=== PATIENT | female | born 1960 | race American Indian/Alaskan Native ===

== ENCOUNTER 2019-02-25 17:55 | Inpatient (IN) | payer BC ==
[2019-02-25 18:23] VITALS: BMI 25.2
[2019-02-25] MEDS ORDERED: Ondansetron PF 4 MG/2 ML Vial IVP PRN (19:18)
[2019-02-25] MEDS ORDERED: Diazepam 5 MG TAB PO PRN (19:34)
--- NOTE | 2019-02-25 20:08 | HP ---
PRIMARY CARE PROVIDER: Out of town in [place]. CHIEF COMPLAINT: Fall. HISTORY OF PRESENT ILLNESS: This is a 58-year-old female with history of hypertension, alcohol abuse, reporting 2 bottles of wine per night, hypothyroidism, who was at a local inpatient alcohol rehab, who reports a fall this morning. The patient states that she had weakness in her leg starting in September. Today, she was sitting, reached over for something, and reports falling. She denies passing out, states that her legs simply are not strong enough to carry her. In general, she has been walking slowly to accommodate the weakness, holding onto orona. She denies any chest pain or difficulty breathing. Denies any pain anywhere right now. She also denies any nausea, vomiting, or abdominal pain. The patient presented to [facility] today, found to have an acute kidney injury. She received IV fluids and hospitalist here called for admission. By report at the inpatient rehab, the patient has been receiving Librium with a taper, as well as Valium at night. She reports her last dose of Librium was 2 days ago, her last drink of alcohol was 4 nights ago, and she entered rehab 3 days ago. She reports drinking very little fluid over the past few days. ALLERGIES: NO KNOWN DRUG ALLERGIES. CURRENT MEDICATIONS: Reconciled with the patient: 1. Losartan 50 mg daily, states her last dose of this was 3 days ago when she entered rehab because her blood pressures were low that day. She estimates around 100 systolic. 2. Synthroid 50 mcg daily. Medications reported at the rehab facility are (no documentation is available): 1. Librium unknown dose and frequency. 2. Folic acid. 3. Thiamine. 4. Multivitamin. 5. Valium. PAST MEDICAL HISTORY: 1. Hypothyroidism. 2. Hypertension. PAST SURGICAL HISTORY: Gastric bypass. FAMILY HISTORY: Negative for inherited conditions. SOCIAL HISTORY: Her home is in [place]. Her is her surrogate decision maker. She is a full code. She reports 2 bottles of wine per night starting last summer. REVIEW OF SYSTEMS: Negative for fevers, chills, nausea, vomiting, abdominal pain, chest pain, difficulty breathing, headache, or change in vision. All remaining review of systems are reviewed and negative. PHYSICAL EXAMINATION: VITAL SIGNS: Blood pressure 100/63, temperature 97.8, pulse 75, respirations 16 , saturations 99% on room air. GENERAL: Awake, alert, responsive, answers questions appropriately. Does appear weak in general, but not in apparent distress. HEENT: Her pupils are equal and round, reactive to light. No scleral icterus. Oral mucosa is pink and moist. NECK: Supple, nontender. LYMPHATICS: No palpable cervical or supraclavicular lymphadenopathy. LUNGS: Clear to auscultation bilateral. No audible wheezing, rhonchi, or rales. HEART: Normal S1 and S2. Regular rate and rhythm. No significant murmur. ABDOMEN: Soft, present bowel sounds. Nontender. Nondistended. EXTREMITIES: No edema, clubbing, or cyanosis. SKIN: No visible rashes. NEUROLOGIC: No focal deficits. Moving arms and legs equally. PSYCHIATRIC: Affect is blunted, unknown baseline. L/l/gd thought process. LABORATORY DATA: Reviewed from the [facility]. 1. CBC 4.1, 10.9, 32.4, 171 with an MCV of 99. 2. CT report of the brain without contrast, no acute intracranial abnormality. 3. Renal panel is 143, 4.1, 108, 24, 2.2, 123. 4. EKG is personally reviewed. It is sinus rhythm, normal axis, normal intervals, some T-wave inversions and flattening throughout. IMPRESSION: 1. Acute kidney injury in the context of poor p.o. intake, low blood pressures, and an ARB. 2. Alcohol abuse. Currently, at an inpatient rehab being treated for alcohol withdrawal. 3. History of hypertension, currently with blood pressures that are low normal. 4. Hypothyroidism, unknown control with levothyroxine replacement. 5. Anemia, mild. PLAN: 1. Admission to the hospital. 2. IV fluid hydration, check urinalysis, renal ultrasound, and Nephrology consultation. 3. Monitoring her blood pressures. 4. Monitoring for alcohol withdrawal and medications per the ASE protocol (do not think she needs a banana bag as she can take PO, IM thiamine as she can take PO, valium 10 mg now as she has been on long-acting librium. Can do the other medications per protocol - discussed with Pharmacist). 5. Check TSH. Continue Synthroid and adjust if needed. 6. Vitamins are included with the ASE protocol. We will order those. 7. Renal diet. 8. We will order Valium at night per the patient's request - 5 mg prn. 9. Monitor on telemetry for now. 10. PT and OT consult given the weakness. 11. DVT prophylaxis with pneumatic compression devices. 12. GI prophylaxis not indicated. The patient will be written for a diet. 13. Code status is full. Surrogate decision maker is the patient's . Reviewed the plan of care with the patient. No questions or further needs at the end of evaluation. The patient is at high risk given age comorbidities and current presentation. Anticipate this hospitalization will be 3-4 days, based on optimizing her renal function. Job ID: [id number] MTDD
[2019-02-25] MEDS: Sodium Chloride 0.9% 1,000 ML IV SCH (21:55)
[2019-02-25] MEDS: Diazepam 5 MG TAB PO PRN (23:31)
[2019-02-26] MEDS ORDERED: Diazepam 5 MG TAB PO PRN (04:00)
[2019-02-26 04:47] LABS: Anion Gap 13 mmol/L (10-20); BUN (Urea Nitrogen) 21 mg/dL (9.8-20.1); Calc. Creatinine Clearance 28 mL/min (70-130); Calcium 7.9 mg/dL (7.8-10.44); Carbon Dioxide 21 mmol/L (22-29); Chloride 114 mmol/L (98-107); Estimated GFR-MDRD 26; Glucose 86 mg/dL (70-105); Potassium 3.5 mmol/L (3.5-5.1); Sodium 144 mmol/L (136-145)
[2019-02-26 04:56] LABS: #Eosinphils 0.1 thou/uL (0.0-0.7); #Lymphocytes 1.3 thou/uL (1.20-3.40); #Monocytes 0.3 thou/uL (0.11-0.59); #Neutrophils 1.9 thou/uL (1.40-6.50); %Basophils 1.2 % (0.0-1.0); %Lymphocytes 35.3 % (21.0-51.0); %Neutrophils 50.6 % (42.0-75.0); Hemoglobin 8.9 g/dL (12.0-16.0); MDiff Complete? YES; Macrocytosis SLIGHT = 6-15 cells (100X) (0-5/hpf); Mean Corpuscular HGB CONC 33.1 g/dL (32.0-36.0); Mean Corpuscular Hemoglobin 35.3 pg (27.0-31.0); Mean Platelet Volume 9.4 fL (7.4-10.4); Platelet Count 133 thou/uL (130-400); Platelet Morphology Comment Appears Adequate; RBC Distribution Width 11.4 % (11.5-14.5); Red Blood Cell (RBC) Count 2.51 mill/uL (4.20-5.40); White Blood Cell (WBC) Count 3.7 thou/uL (4.8-10.8)
[2019-02-26] MEDS: Levothyroxine Sodium 50 MCG TAB PO SCH (05:59)
[2019-02-26] MEDS: Sodium Chloride 0.9% 1,000 ML IV SCH ×3 (05:59→20:33)
--- NOTE | 2019-02-26 08:41 | ULT ---
RENAL ULTRASOUND: DATE: 02/26/2019. COMPARISON: None. HISTORY: Acute renal insufficiency. TECHNIQUE: Multiplanar, lerma scale sonographic imaging of the kidneys and urinary bladder obtained. FINDINGS: Partially visualized hepatic parenchyma is echogenic suggesting possible steatosis. The right kidney measures 8.7 x 4.3 x 4.1 cm with a cortical thickness of approximately 1.2 cm. No right-sided renal mass, hydronephrosis, or stone seen. The left kidney measures 9.5 x 5.3 x 4.4 cm and demonstrates a cortical thickness of 1.1 cm. No left -sided renal mass, hydronephrosis, or stone noted. The urinary bladder is grossly unremarkable. IMPRESSION: No hydronephrosis. POS: BERNARDO
[2019-02-26] MEDS ORDERED: Sodium Chloride 0.9% 500 ML IV SCH (08:45)
[2019-02-26] MEDS: Folic Acid 1 MG TAB PO SCH (09:44)
[2019-02-26] MEDS: Multivitamin W/ Minerals 1 TAB PO SCH (09:45)
[2019-02-26] MEDS: Thiamine 100 MG TAB PO SCH (09:45)
[2019-02-26] MEDS: Magnesium Oxide 400 MG TAB PO SCH (09:45)
[2019-02-26 10:16] LABS: Bacteria/HPF 4+ HPF (None Seen); Bilirubin Negative (Negative); Blood, Urine Trace (Negative); Clarity Turbid (Clear); Glucose, Urine (Dipstick) Normal (Negative); Leukocyte 500 Leu/uL (Negative); Nitrite Negative (Negative); Protein, Urine (Dipstick) 30 mg/dL (Neg-Trace); WBC/HPF Greater than 50 HPF (0-3)
[2019-02-26 10:26] LABS: Urine Culture Reflex No No
--- NOTE | 2019-02-26 15:09 | PDOC.EVN ---
Event Note - Event Note Event Note: Patient admitted early this morning. She came here from [place] to go into an alcohol rehab. She says she has been off alcohol for several days. Last time she was sober was 2014. Reports generalized weakness and a fall at the rehab. Still feels weak and tired. She appears a little lethargic. Heart regular. Lungs clear. No edema. BP has been a little low. Has no symptoms. UOP fair. Suspect her renal disease is not acute given the BUN:creat. US normal. Recheck in am. PT/OT. Check cortisol level, CMP (with albumin), Free T4, ESR in am. Looks like she has macrocytic anemia and generalized bone marrow suppression from alcohol. No signs of withdrawal at this time. ASE protocol in place.
[2019-02-26] MEDS: Sodium Chloride 0.9% 250 ML IV SCH ×3 (15:28→17:44)
[2019-02-26] MEDS: cefTRIAXone\\ROCEPHIN 1 GM in Sodium Chloride 0.9% 100 ML IVPB SCH (16:31)
[2019-02-26] MEDS: Diazepam 5 MG TAB PO PRN (22:02)
--- NOTE | 2019-02-26 23:16 | CON ---
DATE OF CONSULTATION: CONSULTING PHYSICIAN: Honorio Bowles MD REQUESTING PHYSICIAN: Jil Han MD REASON FOR CONSULTATION: Acute on chronic kidney disease versus chronic kidney disease. IMPRESSION: 1. Acute on chronic kidney disease versus chronic kidney disease, baseline, stage 3. 2. Fall. 3. Hypertension. PLAN: 1. We will recommend rehydration of this patient and improvement in the hemodynamics of this patient as the patient's current blood pressure runs in the 80s. 2. Renally dose all medications for lower GFR. 3. Further management to be dependent on the clinical course. HISTORY OF PRESENT ILLNESS: History is that of a 58-year-old out of town patient from [place], who is here rehabilitating, who took a fall and was brought into the hospital, noted with a creatinine of 1.9. The patient could not give me much of any history of previous history of kidney disease. As a result of these findings, decision has been taken to involve Renal in the management of this case. Of note, the patient's blood pressure seems to be running in the 80s. ALLERGIES: NO KNOWN DRUG ALLERGIES. MEDICATIONS: Reviewed as documented on [employer]. FAMILY HISTORY: No family history of kidney disease. SOCIAL HISTORY: The patient is from [place]. Denies illicit drug use or another rehabilitation. REVIEW OF SYSTEMS: As documented in the body of history. All other systems were reviewed and found not to be significantly related to present illness. PHYSICAL EXAMINATION: GENERAL: The patient was found to be looking very lethargic man, in no respiratory or physical distress. VITAL SIGNS: Noted with the following vital signs; afebrile, temperature 97.9, pulse 80, respiratory rate of 15, O2 saturation 100% with blood pressure 88/55. HEENT: Unremarkable. CARDIOVASCULAR: First and second heart sounds were heard. RESPIRATORY SYSTEM: Clear to auscultation. DIGESTIVE SYSTEM: Revealed a benign abdomen. Positive bowel sounds. EXTREMITIES: No peripheral edema. SKIN: No new gross rash. LYMPHATICS: No peripheral lymphadenopathy. SUMMARY: A 58-year-old female patient, who presented here status post fall. Noted with the decrease in kidney function. Thank you for this consultation. We will follow with you. Job ID: [id number]
[2019-02-27 02:04] LABS: #Eosinphils 0.2 thou/uL (0.0-0.7); #Lymphocytes 1.5 thou/uL (1.20-3.40); #Monocytes 0.3 thou/uL (0.11-0.59); #Neutrophils 1.6 thou/uL (1.40-6.50); %Basophils 1.2 % (0.0-1.0); %Eosinophils 4.2 % (0.0-10.0); %Lymphocytes 42.5 % (21.0-51.0); %Monocytes 7.1 % (0.0-10.0); Hemoglobin 8.2 g/dL (12.0-16.0); Mean Corpuscular HGB CONC 34.1 g/dL (32.0-36.0); Mean Platelet Volume 8.6 fL (7.4-10.4); Platelet Count 134 thou/uL (130-400); RBC Distribution Width 11.6 % (11.5-14.5); Red Blood Cell (RBC) Count 2.27 mill/uL (4.20-5.40); White Blood Cell (WBC) Count 3.6 thou/uL (4.8-10.8)
[2019-02-27 02:25] LABS: ALT (SGPT) 25 U/L (8-55); AST (SGOT) 91 U/L (5-34); Albumin 2.3 g/dL (3.5-5.0); Alkaline Phosphatase 59 U/L (40-110); Anion Gap 11 mmol/L (10-20); BUN (Urea Nitrogen) 16 mg/dL (9.8-20.1); Bilirubin, Total 0.4 mg/dL (0.2-1.2); Calc. Creatinine Clearance 40 mL/min (70-130); Calcium 7.2 mg/dL (7.8-10.44); Carbon Dioxide 17 mmol/L (22-29); Chloride 120 mmol/L (98-107); Estimated GFR-MDRD 39; Globulin 2.3 g/dL (2.4-3.5); Glucose 93 mg/dL (70-105); Potassium 3.2 mmol/L (3.5-5.1); Protein, Total 4.6 g/dL (6.0-8.3); Sodium 145 mmol/L (136-145); Uric Acid 9.9 mg/dL (2.6-6.0)
[2019-02-27] MEDS ORDERED: Potassium Chloride 20 MEQ TAB PO SCH (02:45)
[2019-02-27] MEDS: Sodium Chloride 0.9% 1,000 ML IV SCH ×4 (03:15→22:10)
[2019-02-27] MEDS: Levothyroxine Sodium 50 MCG TAB PO SCH (05:22)
[2019-02-27] MEDS: Thiamine 100 MG TAB PO SCH (09:17)
[2019-02-27] MEDS: Multivitamin W/ Minerals 1 TAB PO SCH (09:17)
[2019-02-27] MEDS: Folic Acid 1 MG TAB PO SCH (09:17)
[2019-02-27] MEDS: Hydrocortisone 10 mg Tablet PO SCH ×4 (09:18→22:10)
[2019-02-27] MEDS: Magnesium Oxide 400 MG TAB PO SCH (09:18)
--- NOTE | 2019-02-27 15:41 | PDOC.HOSPP ---
- Subjective Subjective: Feels about the same today. Still feels weak and tired. - Objective Vital Signs & Weight: Vital Signs (12 hours) Temp Pulse Pulse Pulse Resp BP BP 02/27/19 11:25 97.5 F L 76 16 02/27/19 10:50 76 77 98/56 L 89/56 L 02/27/19 07:31 98.8 F 82 16 BP Pulse Ox Pulse Ox Pulse Ox 02/27/19 11:25 85/80 L 94 L 02/27/19 10:50 98 97 02/27/19 07:31 101/63 97 Weight Weight 132 lb 4 oz I&O: 02/26/19 02/27/19 02/28/19 06:59 06:59 06:59 Intake Total 1600 3940 Output Total 250 Balance 1600 3690 Result Diagrams: 02/27/19 01:47 02/27/19 01:47 Hospitalist ROS - Medication Medications: Active Medications Generic Name Dose Route Start Last Admin Trade Name Freq PRN Reason Stop Dose Admin Diazepam 5 mg 02/25/19 19:31 02/26/19 22:02 Valium PO 5 mg HS PRN Administration Insomnia Folic Acid 1 mg 02/26/19 09:00 02/27/19 09:17 Folvite PO 1 mg DAILY IRENA Administration Hydrocortisone 50 mg 02/27/19 09:00 02/27/19 13:42 Cortef PO 50 mg QID IRENA Administration Sodium Chloride 1,000 mls @ 125 mls/hr 02/25/19 19:30 02/27/19 13:46 Normal Saline 0.9% IV 1,000 mls .Q8H IRENA Administration Ceftriaxone Sodium 1 gm/ 100 mls @ 200 mls/hr 02/26/19 15:00 02/26/19 16:31 Sodium Chloride IVPB 100 mls Q24HR IRENA Administration Iron/Minerals/Multivitamins 1 tab 02/26/19 09:00 02/27/19 09:17 Theragran M PO 1 tab DAILY IRENA Administration Levothyroxine Sodium 50 mcg 02/26/19 06:00 02/27/19 05:22 Synthroid PO 50 mcg 0600 IRENA Administration Magnesium Oxide 400 mg 02/26/19 09:00 02/27/19 09:18 Magnesium Oxide PO 400 mg DAILY IRENA Administration Thiamine HCl 100 mg 02/26/19 09:00 02/27/19 09:17 Thiamine PO 100 mg DAILY IRENA Administration - Exam General Appearance: NAD, awake alert Heart: RRR, no murmur, no gallops, no rubs, normal peripheral pulses Respiratory: CTAB, no wheezes, no rales, no ronchi, normal chest expansion, no tachypnea, normal percussion Gastrointestinal: soft, non-tender, non-distended, normal bowel sounds, no palpable masses, no hepatomegaly, no splenomegaly, no bruit Extremities: no cyanosis, no clubbing, no edema Skin: normal turgor Musculoskeletal: normal tone Psychiatric: normal affect, normal behavior Hosp A/P (1) JANKI (acute kidney injury) Code(s): N17.9 - ACUTE KIDNEY FAILURE, UNSPECIFIED Status: Acute (2) Dehydration Code(s): E86.0 - DEHYDRATION Status: Acute (3) Alcoholism Code(s): F10.20 - ALCOHOL DEPENDENCE, UNCOMPLICATED Status: Acute (4) Hypotension Status: Acute (5) Adrenal insufficiency Code(s): E27.40 - UNSPECIFIED ADRENOCORTICAL INSUFFICIENCY Status: Acute (6) Pancytopenia Code(s): D61.818 - OTHER PANCYTOPENIA Status: Acute (7) Macrocytic anemia Code(s): D53.9 - NUTRITIONAL ANEMIA, UNSPECIFIED Status: Acute - Plan Generalized weakness with relatively low BP and poor UOP. She did not have pre-renal indices to suggest severe dehydration, but she has received a large amount of fluid resuscitation without much reciprocal UOP. Continue with IVF. Renal function is slightly better today. Cortisol was low. Adding HCT po today. So far, no significant change in BP. Continue PT Transfer to medical floor. Check B12 and Folate levels in am. Possible her symptoms could be related to severe B 12 deficiency.
[2019-02-27] MEDS: cefTRIAXone\\ROCEPHIN 1 GM in Sodium Chloride 0.9% 100 ML IVPB SCH (16:39)
--- NOTE | 2019-02-27 18:15 | PRG ---
DATE OF SERVICE: 02/27/2019 SUBJECTIVE: The patient noted with the following vital signs. OBJECTIVE: VITAL SIGNS: Afebrile, temperature 97.4, respiratory rate of 19, pulse of 76, O2 sat of 98%, and blood pressure 111/76. HEENT: Unremarkable. Moist oral mucosa. No conjunctival injection or icterus. NECK: Supple. CARDIOVASCULAR SYSTEM: First and second heart sounds were heard. RESPIRATORY: Clear to auscultation. DIGESTIVE SYSTEM: Revealed a benign abdomen with positive bowel sounds. EXTREMITIES: No peripheral edema. SKIN: No new gross rash. LYMPHATICS: No peripheral lymphadenopathy. LABORATORY INVESTIGATION: Showed a hemoglobin of 8.2. Chemistry showed a potassium of 3.2, creatinine down to 1.37. IMPRESSION: 1. Acute kidney injury, seems to be improved status post rehydration. 2. Hypokalemia. 3. Metabolic acidosis. 4. Alcohol abuse. PLAN: 1. Continue current renal supportive measures to support hemodynamics. 2. Replete the potassium. 3. Further management to be dependent on the clinical course. Job ID: [id number]
[2019-02-28] MEDS: Sodium Chloride 0.9% 1,000 ML IV SCH ×2 (07:21→18:18)
[2019-02-28] MEDS: Levothyroxine Sodium 50 MCG TAB PO SCH (07:22)
[2019-02-28 07:24] LABS: Anion Gap 8 mmol/L (10-20); BUN (Urea Nitrogen) 12 mg/dL (9.8-20.1); Calc. Creatinine Clearance 47 mL/min (70-130); Calcium 7.1 mg/dL (7.8-10.44); Carbon Dioxide 18 mmol/L (22-29); Chloride 121 mmol/L (98-107); Estimated GFR-MDRD 45; Glucose 183 mg/dL (70-105); Potassium 3.9 mmol/L (3.5-5.1); Sodium 143 mmol/L (136-145)
[2019-02-28] MEDS: Hydrocortisone 10 mg Tablet PO SCH ×4 (08:02→20:12)
[2019-02-28] MEDS: Thiamine 100 MG TAB PO SCH (08:02)
[2019-02-28] MEDS: Folic Acid 1 MG TAB PO SCH (08:02)
[2019-02-28] MEDS: Magnesium Oxide 400 MG TAB PO SCH (08:02)
[2019-02-28] MEDS: Multivitamin W/ Minerals 1 TAB PO SCH (08:02)
[2019-02-28] MEDS: Aspirin/APAP/Caffeine Tab (Excedrin Migraine) PO PRN (10:59)
--- NOTE | 2019-02-28 12:34 | PRG ---
DATE OF SERVICE: 02/28/2019 SUBJECTIVE: The patient noted with the following vital signs. OBJECTIVE: VITAL SIGNS: Afebrile, temperature 97.8, pulse 84, respiratory rate of 18, O2 saturations are 99%, and blood pressure 114/79. HEENT: Unremarkable. CARDIOVASCULAR SYSTEM: First and second heart sounds were heard. RESPIRATORY SYSTEM: Clear to auscultation. DIGESTIVE SYSTEM: Revealed a benign abdomen. EXTREMITIES: No peripheral edema. SKIN: No new gross rash. LYMPHATICS: No peripheral lymphadenopathy. LABORATORY INVESTIGATION: Significant for creatinine down to 1.21, bicarb of 18. IMPRESSION: 1. Acute on chronic kidney disease, improving with IV fluids, status post rehydration. 2. Metabolic acidosis. PLAN: 1. Continue current renal supportive measures. 2. Further management will be dependent on the clinical course. Job ID: [id number]
[2019-02-28] MEDS: cefTRIAXone\\ROCEPHIN 1 GM in Sodium Chloride 0.9% 100 ML IVPB SCH (14:18)
[2019-02-28] MEDS: Acetaminophen 325 MG TAB PO PRN (16:01)
[2019-02-28] MEDS: Diazepam 5 MG TAB PO PRN (20:14)
--- NOTE | 2019-02-28 22:01 | PDOC.HOSPP ---
- Subjective Subjective: Feels a little better. Has had a headache today, but improving. - Objective Vital Signs & Weight: Vital Signs (12 hours) Temp Pulse Pulse Pulse Resp BP BP 02/28/19 19:15 02/28/19 19:10 97.3 F L 87 18 02/28/19 15:40 97.4 F L 94 20 02/28/19 15:15 94 91 110/71 104/71 02/28/19 11:39 97.8 F 84 18 BP Pulse Ox 02/28/19 19:15 98 02/28/19 19:10 110/76 98 02/28/19 15:40 110/71 96 02/28/19 15:15 02/28/19 11:39 114/79 99 Weight Weight 132 lb 6.4 oz I&O: 02/27/19 02/28/19 03/01/19 06:59 06:59 06:59 Intake Total 3940 2095 1705 Output Total 250 450 500 Balance 3690 1645 1205 Result Diagrams: 02/27/19 01:47 02/28/19 06:39 Hospitalist ROS - Medication Medications: Active Medications Generic Name Dose Route Start Last Admin Trade Name Freq PRN Reason Stop Dose Admin Acetaminophen 650 mg 02/25/19 19:18 02/28/19 16:01 Tylenol PO 650 mg Q8H PRN Administration Headache/Fever/Mild Pain (1-3) Acetaminophen/Aspirin/Caffeine 1 tab 02/28/19 10:36 02/28/19 10:59 Excedrin Migraine PO 1 tab Q6H PRN Administration Headache Diazepam 5 mg 02/25/19 19:31 02/28/19 20:14 Valium PO 5 mg HS PRN Administration Insomnia Folic Acid 1 mg 02/26/19 09:00 02/28/19 08:02 Folvite PO 1 mg DAILY IRENA Administration Hydrocortisone 50 mg 02/27/19 09:00 02/28/19 20:12 Cortef PO 50 mg QID IRENA Administration Sodium Chloride 1,000 mls @ 125 mls/hr 02/25/19 19:30 02/28/19 18:18 Normal Saline 0.9% IV 1,000 mls .Q8H IRENA Administration Ceftriaxone Sodium 1 gm/ 100 mls @ 200 mls/hr 02/26/19 15:00 02/28/19 14:18 Sodium Chloride IVPB 100 mls Q24HR IRENA Administration Iron/Minerals/Multivitamins 1 tab 02/26/19 09:00 02/28/19 08:02 Theragran M PO 1 tab DAILY IRENA Administration Levothyroxine Sodium 50 mcg 02/26/19 06:00 02/28/19 07:22 Synthroid PO 50 mcg 0600 IRENA Administration Magnesium Oxide 400 mg 02/26/19 09:00 02/28/19 08:02 Magnesium Oxide PO 400 mg DAILY IRENA Administration Thiamine HCl 100 mg 02/26/19 09:00 02/28/19 08:02 Thiamine PO 100 mg DAILY IRENA Administration - Exam General Appearance: NAD, awake alert Heart: RRR, no murmur, no gallops, no rubs, normal peripheral pulses Respiratory: CTAB, no wheezes, no rales, no ronchi, normal chest expansion, no tachypnea, normal percussion Gastrointestinal: soft, non-tender, non-distended, normal bowel sounds, no palpable masses, no hepatomegaly, no splenomegaly, no bruit Extremities: no cyanosis, no clubbing, no edema Neurological: no focal deficits Psychiatric: normal affect, normal behavior, A&O x 3 Hosp A/P (1) JANKI (acute kidney injury) Code(s): N17.9 - ACUTE KIDNEY FAILURE, UNSPECIFIED Status: Acute (2) Dehydration Code(s): E86.0 - DEHYDRATION Status: Acute (3) Alcoholism Code(s): F10.20 - ALCOHOL DEPENDENCE, UNCOMPLICATED Status: Acute (4) Hypotension Status: Acute (5) Adrenal insufficiency Code(s): E27.40 - UNSPECIFIED ADRENOCORTICAL INSUFFICIENCY Status: Acute (6) Pancytopenia Code(s): D61.818 - OTHER PANCYTOPENIA Status: Acute (7) Macrocytic anemia Code(s): D53.9 - NUTRITIONAL ANEMIA, UNSPECIFIED Status: Acute - Plan Generalized weakness with relatively low BP and poor UOP. She did not have pre-renal indices to suggest severe dehydration, but she has received a large amount of fluid resuscitation without much reciprocal UOP. Continue with IVF. Renal function is slightly better today. Cortisol was low. Adding HCT po. Continue PT Transfer to medical floor.
[2019-03-01 05:19] LABS: Anion Gap 12 mmol/L (10-20); BUN (Urea Nitrogen) 14 mg/dL (9.8-20.1); Calc. Creatinine Clearance 46 mL/min (70-130); Calcium 7.2 mg/dL (7.8-10.44); Carbon Dioxide 16 mmol/L (22-29); Chloride 123 mmol/L (98-107); Estimated GFR-MDRD 45; Glucose 132 mg/dL (70-105); Potassium 3.8 mmol/L (3.5-5.1); Sodium 147 mmol/L (136-145)
[2019-03-01] MEDS: Levothyroxine Sodium 50 MCG TAB PO SCH (05:38)
[2019-03-01] MEDS: Sodium Chloride 0.9% 1,000 ML IV SCH (05:39)
[2019-03-01] MEDS: Folic Acid 1 MG TAB PO SCH (10:01)
[2019-03-01] MEDS: Magnesium Oxide 400 MG TAB PO SCH (10:01)
[2019-03-01] MEDS: Hydrocortisone 10 mg Tablet PO SCH ×2 (10:01→22:00)
[2019-03-01] MEDS: Multivitamin W/ Minerals 1 TAB PO SCH (10:01)
[2019-03-01] MEDS: Thiamine 100 MG TAB PO SCH (10:01)
[2019-03-01] MEDS: Acetaminophen 325 MG TAB PO PRN (10:18)
--- NOTE | 2019-03-01 19:56 | PDOC.HOSPP ---
- Subjective Subjective: Doing better. Feeling stronger. Concerned about going back to the alcohol rehab given her generalized weakness. - Objective Vital Signs & Weight: Vital Signs (12 hours) Temp Pulse Pulse Pulse Resp BP BP 03/01/19 19:40 97.5 F L 83 16 03/01/19 15:34 98.2 F 78 16 112/73 03/01/19 12:00 108/74 03/01/19 11:20 98.1 F 73 20 03/01/19 10:01 80 71 126/90 BP BP Pulse Ox 03/01/19 19:40 126/83 100 03/01/19 15:34 112/73 96 03/01/19 12:00 03/01/19 11:20 108/74 97 03/01/19 10:01 120/85 Weight Weight 149 lb 4.8 oz I&O: 02/28/19 03/01/19 03/02/19 06:59 06:59 06:59 Intake Total 2095 1705 720 Output Total 450 500 500 Balance 1645 1205 220 Result Diagrams: 02/27/19 01:47 03/01/19 04:15 Hospitalist ROS - Medication Medications: Active Medications Generic Name Dose Route Start Last Admin Trade Name Freq PRN Reason Stop Dose Admin Acetaminophen 650 mg 02/25/19 19:18 03/01/19 10:18 Tylenol PO 650 mg Q8H PRN Administration Headache/Fever/Mild Pain (1-3) Acetaminophen/Aspirin/Caffeine 1 tab 02/28/19 10:36 02/28/19 10:59 Excedrin Migraine PO 1 tab Q6H PRN Administration Headache Diazepam 5 mg 02/25/19 19:31 02/28/19 20:14 Valium PO 5 mg HS PRN Administration Insomnia Folic Acid 1 mg 02/26/19 09:00 03/01/19 10:01 Folvite PO 1 mg DAILY IRENA Administration Hydrocortisone 50 mg 03/01/19 09:00 03/01/19 10:01 Cortef PO 50 mg BID IRENA Administration Iron/Minerals/Multivitamins 1 tab 02/26/19 09:00 03/01/19 10:01 Theragran M PO 1 tab DAILY IRENA Administration Levothyroxine Sodium 50 mcg 02/26/19 06:00 03/01/19 05:38 Synthroid PO 50 mcg 0600 IRENA Administration Magnesium Oxide 400 mg 02/26/19 09:00 03/01/19 10:01 Magnesium Oxide PO 400 mg DAILY IRENA Administration Thiamine HCl 100 mg 02/26/19 09:00 03/01/19 10:01 Thiamine PO 100 mg DAILY IRENA Administration - Exam General Appearance: NAD, awake alert Neck: supple, symmetric, no JVD, no thyromegaly, no lymphadenopathy, no carotid bruit Heart: RRR, no murmur, no gallops, no rubs, normal peripheral pulses Respiratory: CTAB, no wheezes, no rales, no ronchi, normal chest expansion, no tachypnea, normal percussion Gastrointestinal: soft, non-tender, non-distended, normal bowel sounds, no palpable masses, no hepatomegaly, no splenomegaly, no bruit Extremities: no cyanosis, no clubbing, no edema Skin: normal turgor, no lesions, no rashes Musculoskeletal: normal tone Psychiatric: normal affect, normal behavior, A&O x 3 Hosp A/P (1) JANKI (acute kidney injury) Code(s): N17.9 - ACUTE KIDNEY FAILURE, UNSPECIFIED Status: Acute (2) Dehydration Code(s): E86.0 - DEHYDRATION Status: Acute (3) Alcoholism Code(s): F10.20 - ALCOHOL DEPENDENCE, UNCOMPLICATED Status: Acute (4) Hypotension Status: Acute (5) Adrenal insufficiency Code(s): E27.40 - UNSPECIFIED ADRENOCORTICAL INSUFFICIENCY Status: Acute (6) Pancytopenia Code(s): D61.818 - OTHER PANCYTOPENIA Status: Acute (7) Macrocytic anemia Code(s): D53.9 - NUTRITIONAL ANEMIA, UNSPECIFIED Status: Acute (8) Hypothyroidism Code(s): E03.9 - HYPOTHYROIDISM, UNSPECIFIED Status: Acute (9) Hypernatremia Code(s): E87.0 - HYPEROSMOLALITY AND HYPERNATREMIA Status: Acute (10) Acidosis, hyperchloremic Code(s): E87.2 - ACIDOSIS Status: Acute - Plan Generalized weakness with relatively low BP and poor UOP. Required a large volume fluid resuscitation. UOP and BP have improved. Now a little hypernatremic with hypercholemic acidosis. DC IVF. Encourage free water intake. Renal function is slightly better. Appears to be a baseline. Consistent with CKD. Cortisol was low. HCT oral may have helped with BP. Reduce the dose to bid. May wean with time. Continue PT Did much better today. Discussed with CM. Given her performance with PT, she will not likely qualify for any PT, rehab. If numbers look ok in the morning, can DC back to her [facility] rehab.
[2019-03-01] MEDS: Aspirin/APAP/Caffeine Tab (Excedrin Migraine) PO PRN (22:00)
[2019-03-01] MEDS: Diazepam 5 MG TAB PO PRN (22:00)
[2019-03-02 05:03] LABS: Anion Gap 9 mmol/L (10-20); BUN (Urea Nitrogen) 17 mg/dL (9.8-20.1); Calc. Creatinine Clearance 51 mL/min (70-130); Calcium 7.3 mg/dL (7.8-10.44); Carbon Dioxide 17 mmol/L (22-29); Chloride 122 mmol/L (98-107); Estimated GFR-MDRD 44; Glucose 115 mg/dL (70-105); Sodium 144 mmol/L (136-145)
[2019-03-02] MEDS: Levothyroxine Sodium 50 MCG TAB PO SCH (05:43)
[2019-03-02] MEDS: Magnesium Oxide 400 MG TAB PO SCH (08:47)
[2019-03-02] MEDS: Thiamine 100 MG TAB PO SCH (08:47)
[2019-03-02] MEDS: Hydrocortisone 10 mg Tablet PO SCH (08:47)
[2019-03-02] MEDS: Multivitamin W/ Minerals 1 TAB PO SCH (08:47)
[2019-03-02] MEDS: Folic Acid 1 MG TAB PO SCH (08:48)
[2019-03-02 12:26] VITALS: BP 111/77; TEMP 97.8
--- NOTE | 2019-03-03 23:26 | DIS ---
DATE OF ADMISSION: 02/25/2019 DATE OF DISCHARGE: 03/02/2019 DISCHARGE DIAGNOSES: 1. Acute on chronic kidney disease. 2. Dehydration. 3. Alcoholism. 4. Hypertension. 5. Adrenal insufficiency. 6. Mild pancytopenia. 7. Macrocytic anemia. 8. Hypothyroidism. 9. Hypernatremia. 10. Hyperchloremic acidosis. HISTORY OF PRESENT ILLNESS: This patient is a 58-year-old female, who was admitted to the emergency department. The patient was in an alcohol rehab program to which she presented from [place]. While there, the patient was feeling generally weak and was seen in the emergency department, where she was noted to have some elevation of her creatinine. She was subsequently admitted to the hospital for what appeared to be an acute kidney injury, although she had no prior lab values for comparison. HOSPITAL COURSE: The patient was admitted to the hospital and started on hydration. She was noted to have persistent hypotension and fairly poor urine output. She had a cortisol level checked in the morning, which was low and she was started on oral hydrocortisone replacement. She continued aggressive hydration and ultimately with those in combination, the patient's blood pressure did come up appropriately and her urine output increased appropriately as well. Overall with that, her strength improved, working with physical therapy daily and she appeared to be close to baseline. However, her renal function did improve slightly, but remained below the normal, more consistent with a chronic kidney disease along with acute kidney injury from what appeared to be significant dehydration. With the hydration, the patient did develop some hypernatremia and some expansion hyperchloremic acidosis; therefore, her IV fluids were discontinued and she was encouraged to continue to take p.o. free water, which she did. With that, her hypernatremia and acidosis did improve. She had plans to return to the alcohol rehab program. She felt confident that she was going to be able to function there physically without the use of any assistive devices and was therefore felt to be stable for discharge. DISCHARGE EXAMINATION: VITAL SIGNS: On the day of discharge, temperature was 97.8, pulse 62, respirations 16, O2 saturation 97% on room air, BP was 111/77. GENERAL: She was awake and alert. HEART: Regular rate and rhythm. LUNGS: Clear. ABDOMEN: Benign. EXTREMITIES: No edema. DISPOSITION: The patient is discharged back to the alcohol rehab program facility. ACTIVITY: As tolerated. DIET: She has no dietary restrictions. FOLLOWUP: She is to follow up with her primary care provider either upon return to [place] or here locally if possible to establish that. She will be on hydrocortisone 20 mg p.o. daily and was encouraged to follow up at some point with the PCP to consider cessation of that in the future depending on how her progress went. TIME SPENT: Total time in discharge activities was 35 minutes. Job ID: [id number]
== END 2019-03-02 14:06 | disposition home or self-care (01) | DRG 683 ==
LOC: 2NO 17:55
PROVIDERS: ADMIT Otolaryngology; ATTEND Family Medicine
DX: N17.9 Acute kidney failure, unspecified (principal); D61.818 Other pancytopenia; E87.2 Acidosis; E87.0 Hyperosmolality and hypernatremia; E27.40 Unspecified adrenocortical insufficiency; I12.9 Hypertensive chronic kidney disease with stage 1 through stage 4 chronic kidney disease, or unspecified chronic kidney disease; N18.3 Chronic kidney disease, stage 3 (moderate); E03.9 Hypothyroidism, unspecified; D63.1 Anemia in chronic kidney disease; F10.20 Alcohol dependence, uncomplicated; I95.9 Hypotension, unspecified; D53.9 Nutritional anemia, unspecified; E86.0 Dehydration; E87.8 Other disorders of electrolyte and fluid balance, not elsewhere classified; E87.6 Hypokalemia; Z79.890 Hormone replacement therapy; Z79.899 Other long term (current) drug therapy; Z98.84 Bariatric surgery status
CPT/HCPCS: 36415; 76770; 80048; 80053; 81001; 82533; 82607; 82746; 83930; 84439; 84443; 84550; 85025; 85652; 87086; J0696; J3490